=== PATIENT | female | born 1975 | race Caucasian/White ===

== ENCOUNTER 2017-08-03 20:19 | Observation (INO) | payer OTHER ==
[2017-08-03 21:27] LABS: BASOPHILS 0.1 % (0-2); EOSINOPHILS 1.2 % (0-7); HEMATOCRIT 40.3 % (36.0-48.0); HEMOGLOBIN 13.4 g/dL (12-16); IMMATURE GRANULOCYTES 0.1 % (0-5); MCH 30.7 pg (26.0-34.0); MCHC 33.3 g/dL (31.0-37.0); MCV 92.4 fL (80.0-100.0); MEAN PLATELET VOLUME 9.3 fL (7.4-10.4); MONOCYTES 9.9 % (2-11); NEUTROPHILS 72.7 % (40-80); PLATELET COUNT 163 10x3/uL (130-400); RBC 4.36 10x6/uL (4.00-5.40); RDW 13.6 % (11.5-14.5); WBC 7.3 10x3/uL (4.8-10.8)
[2017-08-03 21:33] LABS: INR 0.94 (0.85-1.17); PROTIME 12.2 SECONDS (11.6-15.0)
[2017-08-03 21:34] LABS: APTT 28.3 SECONDS (22.8-39.4)
[2017-08-03 21:35] LABS: D-DIMER-QUANTITATIVE < 0.27 ug/mLFEU (0.20-0.54)
[2017-08-03 21:43] LABS: ALBUMIN 3.7 g/dL (3.4-5.0); ALKALINE PHOSPHATASE 42 U/L (46-116); ALT (SGPT) 15 U/L (10-68); BILIRUBIN - TOTAL 0.18 mg/dL (0.2-1.3); CALC OSMOLALITY 278 mosm/kg (275-300); CALCIUM 8.8 mg/dL (8.5-10.1); CARBON DIOXIDE 26.5 mmol/L (21.0-32.0); CHLORIDE - SERUM 107 mmol/L (98-107); GLUCOSE 79 mg/dL (74-106); POTASSIUM - SERUM 3.9 mmol/L (3.5-5.1); PROTEIN - SERUM 6.9 g/dL (6.4-8.2); SODIUM 141 mmol/L (136-145); UREA NITROGEN 10 mg/dL (7-18); eGFR NON AFRICAN AMERICAN 64 mL/min (90-120)
[2017-08-03 21:47] LABS: APPEARANCE CLEAR (CLEAR); BILIRUBIN NEGATIVE (NEGATIVE); COLOR STRAW (YELLOW); GLUCOSE NEGATIVE (NEGATIVE); KETONE SMALL mg/dL (NEGATIVE); NITRITE NEGATIVE (NEGATIVE); PROTEIN NEGATIVE (NEGATIVE); SPECIFIC GRAVITY 1.005 (1.005-1.020); UROBILINOGEN NORMAL (NORMAL)
[2017-08-03 21:48] LABS: BACTERIA FEW /hpf (NONE SEEN); EPITHELIAL CELLS 0-5 /hpf (0-5); WHITE CELLS - URINE 0-5 /hpf (0-5)
[2017-08-03 21:57] LABS: CHOL - HDL RATIO 2.5 ratio (2.3-4.1); CHOLESTEROL, TOTAL 179 mg/dL (0-200); CKMB 0.4 U/L (0.0-3.6); CREATINE KINASE 43 UL (21-215); HDL CHOLESTEROL 71 mg/dL (32-96); LDL CHOLESTEROL 88 mg/dL (0-100); LDL-HDL RATIO 1.2 ratio (1.5-3.5); MAGNESIUM - SERUM 2.3 mg/dL (1.8-2.4); TRIGLYCERIDE 100 mg/dL (30-200)
[2017-08-03 21:59] LABS: TROPONIN-I < 0.017 ng/mL (0.000-0.060)
[2017-08-04] MEDS ORDERED: KLONOPIN0.5 MG PO (00:38)
[2017-08-04] MEDS ORDERED: BUPROPION XL150 MG PO (00:39)
[2017-08-04 01:19] LABS: CKMB 0.5 U/L (0.0-3.6); CREATINE KINASE 41 UL (21-215); TROPONIN-I < 0.017 ng/mL (0.000-0.060)
[2017-08-04 05:58] VITALS: BP 122/54
[2017-08-04 06:52] LABS: CKMB 0.3 U/L (0.0-3.6); CREATINE KINASE 36 UL (21-215)
[2017-08-04 06:53] LABS: TROPONIN-I < 0.017 ng/mL (0.000-0.060)
[2017-08-04 08:06] VITALS: BP 120/52
[2017-08-04 11:18] VITALS: BP 101/49
== END 2017-08-04 13:08 | disposition home or self-care (01) ==
LOC: D.ER 20:19 → OBSVTIME 23:52 → D.M2 23:52
PROVIDERS: Family Medicine
DX: R07.9 Chest pain, unspecified (principal)

== ENCOUNTER → 2017-08-18 07:16 | Outpatient (CLI) | payer OTHER ==
[~2017-08-18 07:16] MED LIST: BUPROPION XL150 MG PO; KLONOPIN0.5 MG PO
== END | disposition home or self-care (01) ==
LOC: D.NM 08-15 09:04
DX: K80.20 Calculus of gallbladder without cholecystitis without obstruction (principal)